=== PATIENT | female | born 1970 | race Caucasian/White ===

== ENCOUNTER → 2019-03-31 | Day surgery (SDC) | payer OTHER ==
[2019-03-30 09:48] LABS: BASOPHILS % 0.5 % (0.0-1.0); EOSINOPHILS # (AUTO) 0.1 (0.0-0.4); EOSINOPHILS % 3.1 % (0.0-6.0); HEMATOCRIT 37.7 % (34.2-44.1); HEMOGLOBIN 12.5 g/dL (12.0-16.0); LYMPHOCYTES # (AUTO) 1.7 (1.0-3.2); LYMPHOCYTES % 40.7 % (18.0-39.1); MEAN CORPUSCULAR HEMOGLOBIN 30.4 pg (28-32); MEAN CORPUSCULAR HGB CONC 33.2 g/dL (31-35); MEAN CORPUSCULAR VOLUME 91.7 fL (81-99); MONOCYTES # (AUTO) 0.4 (0.2-0.8); MONOCYTES % 8.5 % (4.4-11.3); NEUTROPHILS % 47.2 % (38.7-80.0); PLATELET COUNT 251 x10e3/uL (140-360); RED BLOOD COUNT 4.11 x10e6/uL (3.6-5.1); RED CELL DISTRIBUTION WIDTH 12.6 % (11.7-14.4)
[2019-03-30 10:12] LABS: ALANINE AMINOTRANSFERASE 18 IU/L (0-55); ALBUMIN/GLOBULIN RATIO 1.3 (0.8-2.0); ALKALINE PHOSPHATASE 45 IU/L (40-150); ANION GAP 11.5 mmol/L (8-16); BLOOD UREA NITROGEN 23 mg/dL (7-26); BUN/CREATININE RATIO 29 (6-25); CALCIUM 9.4 mg/dL (8.4-10.2); CARBON DIOXIDE 27 mmol/L (22-29); CHLORIDE 110 mmol/L (98-107); EST GLOMERULAR FILTRATION RATE > 60 ML/MIN (60-); GLUCOSE 96 mg/dL (74-118); POTASSIUM 4.5 mmol/L (3.5-5.1); SODIUM 144 mmol/L (136-145)
[2019-03-30 10:13] LABS: INR 0.93
[2019-03-30 10:14] LABS: PARTIAL THROMBOPLASTIN TIME 29.1 seconds (23.8-35.5)
[~2019-03-31] MED LIST: ACETAMINOPHEN 1000 MG/100 ML IV ONE; BACITRACIN 50,000 UNIT VIAL ONE; BUPIVACAINE 0.25% 30ML SDV INJ ONE; CEFAZOLIN SOD 1 GM/NS 50ML 50 ML IV ONE; DEXAMETHASONE SOD PHOS INJ 4 MG/ML VIAL ONE; EPINEPHRINE HCL 1:1000 1ML 1 MG/ML AMP ONE; EYE LUBRICANT OPTH OINT 3.5GM TUBE OP ONE; FENTANYL CITRATE/PF 100MCG/2 ML INJ ONE; HYDROMORPHONE 2MG/ML 2 MG/ML ML ONE; KETAMINE HCL INJ 50 MG/ML 10 ML VIAL ONE; KETOROLAC TROMETHAMINE 30 MG/ML VIAL ONE; LIDOCAINE 1% W/EPINEPHRINE 20 ML VIAL ONE; LIDOCAINE HCL 1% LOCAL INJ 20 ML VIAL ONE; LIDOCAINE HCL 2% LOCAL INJ 5 ML SDV VIAL INJ ONE; MIDAZOLAM HCL 2 MG/2 ML VIAL ONE; ONDANSETRON HCL INJ 2MG/ML 2ML 2 MG/ML VIAL ONE; PROPOFOL IV EMULSION 10 MG/ML 20 ML VIAL ONE; SEVOFLURANE INHAL SOLN 250 ML PEN BTL ONE
[2019-03-31 18:50] VITALS: BP 138/85
--- NOTE | 2019-05-06 20:25 | Operative Report ---
DATE OF PROCEDURE: 03/31/2019 SURGEON: Chaparrita Martínez MD PREOPERATIVE DIAGNOSES: 1. History of breast cancer. 2. Acquired deformity of bilateral breast. 3. Bilateral old silicone gel breast implants. POSTOPERATIVE DIAGNOSES: 1. History of breast cancer. 2. Acquired deformity of bilateral breast. 3. Bilateral old silicone gel breast implants. PROCEDURES PERFORMED: 1. Removal of bilateral old intact silicone gel breast implants, submuscular. 2. Bilateral breast capsulotomies. 3. Revision of bilateral breast reconstruction. 4. Immediate placement of cohesive silicone gel breast implants, Sientra HSC Plus smooth round high profile 385 mL implants, SN number on the left [id number] and SN number on the right [id number] in reconstruction bilaterally. 5. Fat transfer to bilateral breast in reconstruction, 150 mL transferred to the left side and 160 mL transferred to the right side. ANESTHESIA: General endotracheal. INDICATIONS FOR SURGERY: This is a 48-year-old female, who has been diagnosed in the past with breast cancer and has had bilateral mastectomies and reconstruction with silicone gel breast implants. The patient is currently presenting for removal of bilateral old intact silicone gel breast implants, bilateral breast capsulotomies, revision of bilateral breast reconstruction, immediate placement of bilateral silicone gel breast implants in reconstruction, and fat transfer to bilateral breast in reconstruction. The risks, alternatives, and possible complications of the above procedures were explained to the patient. These include, but are not limited to, bleeding, infection, scarring, nipple or skin flap necrosis, capsular contracture, exposure of failure of silicone gel breast implants, breast asymmetry, wound dehiscence, pulmonary embolism, deep venous thrombosis, failure of fat transfer asymmetry, lumpiness, recurrence of lipodystrophy, unsatisfactory esthetic result, and possible need for further surgery. The patient had an opportunity to ask questions and have her questions answered, and agreed to proceed with the proposed procedure. PROCEDURE IN DETAIL: The patient was marked in the preoperative holding area. She was then taken to the operating room and placed supine on the operating table. The patient's bilateral breasts, abdomen, flanks, inner and outer thighs were prepped and draped in the usual surgical fashion. Attention was then turned first to the patient's breasts through the previous mastectomy incision lateral to the reconstructed nipple. An incision was made with #15 blade. The tissue was dissected down to the breast capsule and the old silicone gel implants were removed. They were both Style 20 Allergan 400 mL silicone gel implants and were intact. Bilateral breast pockets were then irrigated with normal saline with antibiotic solution and extensive medial and superior capsulotomy was performed with the help of the Be Medrano and Asad retractor on both breasts. After the capsulotomy, the breast pockets were again irrigated with normal saline with antibiotic solution and checked for hemostasis. After the bilateral capsulotomies, revision of bilateral breast reconstruction was performed by placing lateral capsulorrhaphy sutures on both breast lateral pockets in order to close the breast pockets to accommodate a slightly smaller implant and also to prevent the implants from falling laterally. The capsulorrhaphies were performed with interrupted 0 Ethibond sutures. The two pockets were checked for symmetry after the bilateral capsulorrhaphies and the breast pocket was again irrigated with normal saline with antibiotic solution. The new silicone gel breast implants were then placed in each pocket. They were Sientra Cohesive HSC Plus smooth round high profile 385 mL implants. The patient was then placed in the sitting position and the two breasts were checked for symmetry. They appeared to be symmetric. The mastectomy incisions were then closed with two layers of interrupted 3-0 Vicryl sutures and a running subcuticular 3-0 Monoderm Quill suture. After completion of the bilateral breast reconstruction with immediate placement of new silicone gel breast implants, attention was turned to the patient's abdomen, bilateral flanks, and bilateral inner and outer thighs, which were the donor sites for the patient's fat transfer to the breast. Tumescent fluid was injected through two small incisions on the lower abdomen approximately 1600 mL. Through the same incision, approximately 500 mL of tumescent was injected in each flank area and a small incision was made in the bilateral groin area and 350 mL of tumescent was injected in each inner thigh. Through a separate lateral bikini incision, approximately 400 mL of tumescent fluid was injected in each outer thigh area. After adequate time was given for the tumescent to act, suction-assisted lipectomy was undertaken of each area with #3 mm cannula. The fat was collected using a [employer] fat purification system. Approximately 800 mL of fat was harvested from the patient's abdomen, 100 mL of fat was harvested from each flank area, 200 mL of fat was harvested from each inner thigh area, and 150 mL from each outer thigh area. The donor sites were closed with a single stitch of 5-0 chromic and aspirated fat was purified again using the [employer] fat purification system. A 310 mL of purified fat was obtained and was loaded into 10 mL syringes. A 16-gauge fat transfer cannula was then used to transfer the fat to each breast. Approximately 150 mL of fat was transferred to the left breast and 160 mL of fat was transferred to the right breast. Most of the fat was injected along the medial and superior border of the breast in order to achieve a symmetrical breast appearance and to camouflage the outline of the implant. After fat transfer, both breasts were covered with Xeroform, ABD pads, and a surgical bra was placed on the patient. The donor sites for the fat transfer were covered with ABD pads and a compression garment was placed on the patient. She tolerated the procedure well. There were no immediate complications. The needle and instrument count was correct at the end of the case and she was transferred, extubated to the recovery room. Chaparrita Martínez MD EGG/MODL /[id number]
== END | disposition home or self-care (01) ==
LOC: OR 12:00
PROVIDERS: ATTEND Plastic Surgery
DX: N65.0 Deformity of reconstructed breast (principal); Z85.3 Personal history of malignant neoplasm of breast; Z88.6 Allergy status to analgesic agent; Z01.812 Encounter for preprocedural laboratory examination; Z85.42 Personal history of malignant neoplasm of other parts of uterus
CPT/HCPCS: 15771; 15772 ×6; 19328; 19342; 36415; 80053; 84702; 85025; 85610; 85730; C1789; J0131; J0171; J0690; J1100; J1170; J1885; J2001 ×2; J2250; J2405; J2704; J3010